=== PATIENT | female | born 1990 | race Caucasian/White ===

== ENCOUNTER → 2021-01-04 | Outpatient (CLI) | payer OTHER ==
[2015-04-01 15:27] VITALS: BP 138/91
[~2021-01-04] MED LIST: AMOX1TAB10 PO; ASPI-630 PO; ATOR20TA58 PO; CLOP75TA PO; INSU100C SQ; LORA-434 PO; NAPR-683 PO; OXYC1TAB19 PO; TEMA15CA6 PO; [UNRECOGNIZED DRUG - OTHER]
--- NOTE | 2021-01-04 13:10 | RAD ---
EXAM: Lower extremity arterial Doppler sonogram with ankle-brachial indices (JOHN). HISTORY: Nonhealing diabetic ulcer. Peripheral vascular disease. TECHNIQUE: Doppler sonographic evaluation of the lower extremities was performed and pressure reading s were assessed. FINDINGS: Right brachial pressure: 151 mmHg Left brachial pressure: 140 mmHg Right ankle pressure: 117 mmHg Right JOHN: 0.77 Left ankle pressure: 120 mmHg Left JOHN: 0.72 There are abnormal monophasic waveforms throughout the bilateral lower extremity arteries. There is a therosclerotic plaque throughout the lower extremity arteries. There is a severely elevated peak syst olic velocity within the proximal right superficial femoral artery, measuring 436 cm/s. There are mod erate elevated peak systolic velocities within the right common femoral, distal superficial femoral a nd popliteal artery, measuring 231 cm/s, 251 cc/s, and 214 cm/s. There is a mild elevated peak systol ic velocities within the left superficial artery, measuring 158 cm/s. The left peroneal artery is not seen. IMPRESSION: 1. Decreased bilateral ankle-brachial indices consistent with moderate peripheral arterial disease. 2. Monophasic waveforms throughout the lower extremity arteries, consistent with hemodynamically sign ificant proximal stenosis. 3. Doppler findings suggesting severe stenosis involving the proximal right superficial femoral arter y, moderate stenosis involving the distal right superficial femoral artery and popliteal artery and m ild stenosis involving the left mid superficial femoral artery. The left peroneal artery is not seen. Electronically signed by: Kaylie Valles MD (01/04/2021 1:07 PM) [id number]
== END ==
LOC: US 12:07
PROVIDERS: ATTEND Nurse Practitioner Family
DX: E11.621 Type 2 diabetes mellitus with foot ulcer (principal); E66.01 Morbid (severe) obesity due to excess calories; L97.513 Non-pressure chronic ulcer of other part of right foot with necrosis of muscle; L97.523 Non-pressure chronic ulcer of other part of left foot with necrosis of muscle
CPT/HCPCS: 82962; 93922; 93925